=== PATIENT | female | born 1985 | race African-American/Black ===

== ENCOUNTER 2017-01-19 13:22 | Emergency (ER) | payer MEDICAID, OTHER ==
[2017-01-19] MEDS ORDERED: IBUPROFEN 800 MG TABLET PO STA (14:57)
[2017-01-19] MEDS ORDERED: SULFAMETH/TRIMETH DS 800/160 MG TABLET PO STA (14:57)
[2017-01-19] MEDS ORDERED: SULFAMETH/TRIMETH DS 800/160 MG TABLET PO ONE (15:03)
[2017-01-19] MEDS ORDERED: IBUPROFEN 800 MG TABLET PO ONE (15:03)
== END 2017-01-19 15:11 | disposition home or self-care (01) ==
DX: L02.31 Cutaneous abscess of buttock (principal)
CPT/HCPCS: 99283; A9270

== ENCOUNTER 2017-07-13 10:31 | Emergency (ER) | payer OTHER ==
[2017-07-13 10:59] LABS: BILIRUBIN,URINE NEGATIVE (NEGATIVE)
[2017-07-13 11:03] LABS: HCG UR QUAL NEGATIVE; UA CHARGE (STRIP ONLY) YES; UR CULTURE IF IND NOT INDICATED
--- NOTE | 2017-07-13 11:54 | ED Physician Documentation ---
PD HPI FEMALE - Stated complaint Stated Complaint: BACK PX/FEMALE - Chief complaint Chief Complaint: UTI - History obtained from History obtained from: Patient - History of Present Illness Timing - duration: Days Timing - details: Gradual onset Associated symptoms: Pelvic pain (crampy), Dysuria, Urinary frequency. No: Vaginal discharge, Genital sore/lesion Contributing factors: No: Exposed to STD Similar symptoms before: Diagnosis (UTIs) Recently seen: Not recently seen Review of Systems Constitutional: denies: Fever, Chills : reports: Dysuria, Frequency. 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 : None - Past Surgical History Past Surgical History: No - Present Medications Home Medications: Ambulatory Orders Medication Instructions Recorded Confirmed Fluconazole [Diflucan] 150 mg PO ONCE #2 tablet 07/13/17 Metronidazole [Flagyl] 500 mg PO BID #14 tablet 07/13/17 - Allergies Allergies/Adverse Reactions: Allergies Allergy/AdvReac Type Severity Reaction Status Date / Time No Known Drug Allergies Allergy Verified 07/13/17 11:15 - Social History Does the pt smoke?: No Smoking Status: Never smoker Does the pt drink ETOH?: Yes Does the pt have substance abuse?: No - Immunizations Immunizations are current?: Yes PD ED PE NORMAL - Vitals Vital signs reviewed: Yes - General General: Alert and oriented X 3, No acute distress, Well developed/nourished - Cardiac Cardiac: RRR, No murmur - Respiratory Respiratory: Clear bilaterally - Abdomen Abdomen: Normal bowel sounds, Soft, Non distended, No organomegaly, Other (mild tenderness lower abd left more than right, without peritoneal signs. 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 Intravaginal discharge with some thicker white component, but also some clear to milky white thinner. ) Results - Vitals Vitals: Vital Signs - 24 hr 07/13/17 07/13/17 07/13/17 10:45 12:54 12:56 Temperature 36.2 C L Heart Rate 74 81 Respiratory 14 17 Rate Blood Pressure 142/74 H 121/81 H O2 Saturation 100 100 Oxygen O2 Source Room air - Labs Labs: Microbiology 07/13/17 12:44 Wet Prep - Final Vaginal Laboratory Tests 07/13/17 10:53 Urine Color YELLOW Urine Clarity CLEAR Urine pH 7.0 Ur Specific [place] 1.020 Urine Protein NEGATIVE Urine Glucose (UA) NEGATIVE Urine Ketones NEGATIVE Urine Occult Blood TRACE-INTA Urine Nitrite NEGATIVE Urine Bilirubin NEGATIVE Urine Urobilinogen 0.2 (NORMAL) Ur Leukocyte Esterase NEGATIVE Ur Microscopic Review NOT INDICATED Urine Culture Comments NOT INDICATED Urine HCG, Qual NEGATIVE PD MEDICAL DECISION MAKING - ED course Complexity details: reviewed results (UA appears too normal, so discussed pelvic with patient. Pelvic showing clinically likely BV. Will treat for that. ) , considered differential, d/w patient Departure - Departure Disposition: Home, Self Care Clinical Impression: Dysuria, Bacterial vaginosis Condition: Stable Record reviewed to determine appropriate education?: Yes Instructions: ED Vaginosis Bacterial Follow-Up: AD MCCANN [Primary Care Provider] - Prescriptions: Fluconazole [Diflucan] 150 mg PO ONCE #2 tablet Metronidazole [Flagyl] 500 mg PO BID #14 tablet Comments: Take a Climate tramadol antifungal tablet today and repeat in 1 week. Use the metronidazole antibiotic twice daily for a week for the bacterial vaginitis. Culture results will be available in about 3 days to see if there is other type infection. Recheck if not improving over the next several days. Your urine has looked normal without bladder infection and so we are treating as the apparent bacterial vaginitis. Discharge Date/Time: 07/13/17 13:05
[2017-07-13 12:56] VITALS: BP 121/81
[2017-07-13] MEDS ORDERED: IBUPROFEN 400 MG TABLET PO STA (12:58)
== END 2017-07-13 13:05 | disposition home or self-care (01) ==
LOC: ED 10:31
DX: N76.0 Acute vaginitis (principal)
CPT/HCPCS: 81001; 81003; 81025; 87086; 87210; 87491; 87591; 99283

== ENCOUNTER 2017-10-27 10:25 | Emergency (ER) | payer OTHER ==
[2017-10-27 11:19] LABS: BILIRUBIN,URINE NEGATIVE (NEGATIVE)
[2017-10-27 11:22] LABS: HCG UR QUAL NEGATIVE; UA w/ MICROSCOPIC CHARGE YES
[2017-10-27 11:29] LABS: UR CULTURE IF IND NOT INDICATED; WBC,URINE 0-3 /HPF (0-5)
--- NOTE | 2017-10-27 12:17 | ED Physician Documentation ---
PD HPI ABD PAIN - Stated complaint Stated Complaint: FEMALE /LOWER ABD PX - Chief complaint Chief Complaint: Abd Pain - History obtained from History obtained from: Patient - History of Present Illness Timing - onset: Other (She developed low back pain about 5 days ago, then removed around the abdomen, lower quadrants and suprapubic area about 3 days ago. Over the last day she has developed creamy white discharge similar to prior frequent episodes of bacterial vaginosis. She does have urinary frequency but no dysuria. No bleeding, chills, fever, or vomiting. 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 : None - Past Surgical History Past Surgical History: No - Present Medications Home Medications: Ambulatory Orders Medication Instructions Recorded Confirmed Medroxyprogesterone Acetate 150 mg IM 10/27/17 [Depo-Provera] Metronidazole [Flagyl] 500 mg PO BID #14 tablet 10/27/17 - Allergies Allergies/Adverse Reactions: Allergies Allergy/AdvReac Type Severity Reaction Status Date / Time No Known Drug Allergies Allergy Verified 10/27/17 10:36 - Social History Does the pt smoke?: No Smoking Status: Never smoker Does the pt drink ETOH?: Yes Does the pt have substance abuse?: No - Immunizations Immunizations are current?: Yes PD ED PE NORMAL - Vitals Vital signs reviewed: Yes - General General: Alert and oriented X 3, No acute distress - Abdomen Abdomen: Normal bowel sounds, Soft, Other (Mild suprapubic tenderness without surgical signs) - 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 RN), Other (Moderate creamy white vaginal discharge, no cervical motion tenderness but has mild nonspecific bimanual tenderness, if anything lateralizes to the left) - Neuro Neuro: Alert and oriented X 3, Normal speech - Psych Psych: Normal mood, Normal affect Results - Vitals Vitals: Vital Signs - 24 hr 10/27/17 10/27/17 10/27/17 10:32 11:49 12:49 Temperature 36.2 C L 36.2 C L Heart Rate 95 85 77 Respiratory 18 15 16 Rate Blood Pressure 133/85 H 134/84 H 137/90 H O2 Saturation 100 100 96 Oxygen O2 Source Room air - Labs Labs: Microbiology 10/27/17 12:40 Wet Prep - Final Genital - Vaginal 10/27/17 12:28 CHARIS Preparation - Final Fluid - Vaginal Laboratory Tests 10/27/17 10/27/17 11:15 11:15 Urine Color YELLOW Urine Clarity CLEAR Urine pH 6.0 Ur Specific [place] >=1.030 H >=1.030 H Urine Protein NEGATIVE Urine Glucose (UA) NEGATIVE Urine Ketones NEGATIVE Urine Occult Blood SMALL H Urine Nitrite NEGATIVE Urine Bilirubin NEGATIVE Urine Urobilinogen 0.2 (NORMAL) Ur Leukocyte Esterase NEGATIVE Urine RBC 0-5 Urine WBC 0-3 Ur Squamous Epith Cells MOD Squamous H Urine Bacteria Moderate H Urine Mucus Marked Strands Ur Microscopic Review INDICATED Urine Culture Comments NOT INDICATED Urine HCG, Qual NEGATIVE PD MEDICAL DECISION MAKING - ED course ED course: 32-year-old woman with pelvic and back pain associated with vaginal discharge found to have bacterial vaginosis, exam is inconsistent with PID or other intra- abdominal process. The patient and family were counseled as to the diagnosis and need for follow- up. I counseled the patient with regard to signs and symptoms that would necessitate an urgent reevaluation in the emergency department. They understand they are welcome to return at any time if worse or if not improving as expected. This document was made in part using voice recognition software. While efforts are made to proofread this documents, sound alike and grammatical errors may occur. Departure - Departure Disposition: 01 Home, Self Care Clinical Impression: Bacterial vaginosis Condition: Good Record reviewed to determine appropriate education?: Yes Instructions: ED Vaginosis Bacterial Prescriptions: Metronidazole [Flagyl] 500 mg PO BID #14 tablet Comments: Call your doctor to arrange a follow-up appointment, make the next available appointment. In the interim, return anytime if worse or if new symptoms develop. Your blood pressure was elevated today on check into the emergency department. This does not mean that you have hypertension, it is a common phenomenon to come to the emergency department and have elevated blood pressure. I recommend that you see your primary care physician within the week to have it rechecked when you are feeling better.
[2017-10-27 12:50] VITALS: BP 137/90
== END 2017-10-27 13:14 | disposition home or self-care (01) ==
LOC: ED 10:25
DX: N76.0 Acute vaginitis (principal); R03.0 Elevated blood-pressure reading, without diagnosis of hypertension
CPT/HCPCS: 81001; 81003; 81025; 87086; 87210; 87220; 87491; 87591; 99283

== ENCOUNTER 2018-04-30 10:14 | Emergency (ER) | payer OTHER ==
--- NOTE | 2018-04-30 12:08 | ED Physician Documentation ---
History of Present Illness - Stated complaint Stated Complaint: COUGH/CHEST CONGESTATION - Chief complaint Chief Complaint: General - History obtained from History obtained from: Patient, Family - History of Present Illness Timing: Other (This is a 32-year-old woman on Depo-Provera with no possibility of with long-standing reflux on omeprazole although she did not take it today. 6 days ago she developed upper abdominal cramps radiating into the chest. She thought she might be constipated so the next day she took magnesium citrate and she did have a good bowel movement. A few days after that she developed diffuse erythema and welts, but it is noted that that started after getting fluoride rinse at the dentist. That has resolved but since today she now has a nonproductive cough with some shortness of breath after exerting herself. There is no fever.) Review of Systems Constitutional: denies: Fever, Chills Cardiac: reports: Chest pain / pressure. denies: Palpitations, Pedal edema, Calf pain Respiratory: reports: Dyspnea, Cough. 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 - Past Surgical History Past Surgical History: No - Present Medications Home Medications: Ambulatory Orders Medication Instructions Recorded Confirmed Azithromycin [Zithromax] 250 mg PO DAILY #6 tablet 04/30/18 Esomeprazole Magnesium [Nexium] mg PO 04/30/18 Multivitamin [Multiple Vitamins] 1 each PO 04/30/18 - Allergies Allergies/Adverse Reactions: Allergies Allergy/AdvReac Type Severity Reaction Status Date / Time No Known Drug Allergies Allergy Verified 04/30/18 10:22 - Social History Does the pt smoke?: No Smoking Status: Never smoker Does the pt drink ETOH?: Yes Does the pt have substance abuse?: No - Immunizations Immunizations are current?: Yes - POLST Patient has POLST: No PD ED PE NORMAL - Vitals Vital signs reviewed: Yes - General General: Alert and oriented X 3, No acute distress - HEENT HEENT: PERRL, EOMI, Ears normal - Neck Neck: Supple, no meningeal sign, No bony TTP - Cardiac Cardiac: RRR, No murmur - Respiratory Respiratory: No respiratory distress, Clear bilaterally - Abdomen Abdomen: Normal bowel sounds, Soft, Non tender - Extremities Extremities: No edema, No calf tenderness / cord - Neuro Neuro: Alert and oriented X 3, Normal speech - Psych Psych: Normal mood, Normal affect Results - Vitals Vitals: Vital Signs - 24 hr 04/30/18 10:18 Temperature 36.5 C Heart Rate 101 H Respiratory 16 Rate Blood Pressure 131/94 H O2 Saturation 99 Oxygen O2 Source Room air - Labs Labs: Laboratory Tests 04/30/18 04/30/18 04/30/18 12:15 12:15 12:15 WBC 8.5 RBC 4.62 Hgb 13.4 Hct 39.6 MCV 85.8 MCH 28.9 MCHC 33.7 RDW 14.1 Plt Count 349 MPV 6.5 L Neut # 5.4 Lymph # 2.2 [place] # 0.7 Eos # 0.1 Baso # 0.1 Absolute Nucleated RBC 0.00 Nucleated RBC % 0.0 D-Dimer 807.2 H Sodium 135 Potassium 3.6 Chloride 104 Carbon Dioxide 24 Anion Gap 7.0 BUN 14 Creatinine 0.9 Estimated GFR (MDRD) 87 L Glucose 87 Calcium 9.5 Total Bilirubin 0.7 AST 21 ALT 21 Alkaline Phosphatase 79 Total Protein 8.6 H Albumin 4.3 Globulin 4.3 H Albumin/Globulin Ratio 1.0 Lipase 38 Urine Color Urine Clarity Urine pH Ur Specific [place] Urine Protein Urine Glucose (UA) Urine Ketones Urine Occult Blood Urine Nitrite Urine Bilirubin Urine Urobilinogen Ur Leukocyte Esterase Ur Microscopic Review Urine Culture Comments Urine HCG, Qual 04/30/18 12:15 WBC RBC Hgb Hct MCV MCH MCHC RDW Plt Count MPV Neut # Lymph # [place] # Eos # Baso # Absolute Nucleated RBC Nucleated RBC % D-Dimer Sodium Potassium Chloride Carbon Dioxide Anion Gap BUN Creatinine Estimated GFR (MDRD) Glucose Calcium Total Bilirubin AST ALT Alkaline Phosphatase Total Protein Albumin Globulin Albumin/Globulin Ratio Lipase Urine Color YELLOW Urine Clarity CLEAR Urine pH 5.5 Ur Specific [place] 1.010 Urine Protein NEGATIVE Urine Glucose (UA) NEGATIVE Urine Ketones NEGATIVE Urine Occult Blood TRACE-INTA Urine Nitrite NEGATIVE Urine Bilirubin NEGATIVE Urine Urobilinogen 0.2 (NORMAL) Ur Leukocyte Esterase NEGATIVE Ur Microscopic Review NOT INDICATED Urine Culture Comments NOT INDICATED Urine HCG, Qual NEGATIVE PD MEDICAL DECISION MAKING - ED course ED course: 32-year-old woman presents with a constellation of symptoms that cannot easily be explained, nausea, vomiting, followed by welts, followed by cough and shortness of breath. The closest I can come up with his mycoplasmal infection which I will treat her for. She was also screened for other etiologies including PE given her tachycardia and her d-dimer was positive followed by CT that was negative except for pulmonary nodule and a repeat low-dose CT was recommended. Departure - Departure Disposition: Home, Self Care Clinical Impression: Pulmonary nodule, Mycoplasma infection, unspecified site Dyspnea Qualifiers: Dyspnea type: dyspnea on exertion Qualified Code(s): R06.09 - Other forms of dyspnea Dysphagia Qualifiers: Dysphagia type: esophageal phase Qualified Code(s): R13.10 - Dysphagia, unspecified Condition: Good Record reviewed to determine appropriate education?: Yes Prescriptions: Azithromycin [Zithromax] 250 mg PO DAILY #6 tablet Comments: As discussed, your symptoms do not lead to a clear etiology, the closest I can come up with is a mycoplasmal infection which we are treating you for with antibiotics. She continued to have issues with swallowing, talk with your doctor about an upper endoscopy. Your CAT scan was negative for blood clots, but did show a small nodule, discussed this with your physician, he or she may want to repeat a low-dose CAT scan in 3-6 months. Return if worsening.
[2018-04-30 12:22] LABS: BASOPHILS # (AUTO) 0.1 10^3/uL (0.0-0.1); BASOPHILS % (AUTO) 0.6 %; EOSINOPHILS # (AUTO) 0.1 10^3/uL (0.0-0.7); EOSINOPHILS % (AUTO) 1.6 %; HGB - HEMOGLOBIN 13.4 g/dL (12.0-16.0); LYMPHOCYTES # (AUTO) 2.2 10^3/uL (1.5-3.5); LYMPHOCYTES % (AUTO) 26.1 %; MEAN CORPUSCULAR HEMOGLOBIN 28.9 pg (27.0-31.0); MEAN CORPUSCULAR HGB CONC 33.7 g/dL (32.0-36.0); MEAN CORPUSCULAR VOLUME 85.8 fL (81.0-99.0); MEAN PLATELET VOLUME 6.5 fL (7.9-10.8); MONOCYTES # (AUTO) 0.7 10^3/uL (0.0-1.0); MONOCYTES % (AUTO) 8.2 %; NEUTROPHILS # (AUTO) 5.4 10^3/uL (1.5-6.6); NEUTROPHILS % (AUTO) 63.5 %; PLT - PLATELET COUNT 349 10^3/uL (130-450); RED BLOOD COUNT 4.62 10^6/uL (4.20-5.40); RED CELL DISTRIBUTION WIDTH 14.1 % (12.0-15.0); WHITE BLOOD COUNT 8.5 x10^3/uL (4.8-10.8)
--- NOTE | 2018-04-30 12:22 | XRAY Report ---
EXAM: CHEST RADIOGRAPHY EXAM DATE: 04/30/2018 11:39 AM. CLINICAL HISTORY: Cough and congestion. COMPARISON: None. TECHNIQUE: 2 views. FINDINGS: Lungs/Pleura: No focal opacities evident. No pleural effusion. No pneumothorax. Normal volumes. Mediastinum: Heart and mediastinal contours are unremarkable. Other: None. IMPRESSION: 1. No acute disease in the chest. [facility] Referring Provider Line: [phone] SITE ID: [id number]
[2018-04-30 12:29] LABS: BILIRUBIN,URINE NEGATIVE (NEGATIVE); GLUCOSE, URINE (UA) NEGATIVE (NEGATIVE); KETONES,URINE (UA) NEGATIVE (NEGATIVE); LEUKOCYTE ESTERASE, URINE NEGATIVE (NEGATIVE); NITRITE,URINE NEGATIVE (NEGATIVE); OCCULT BLOOD,URINE TRACE-INTA (NEGATIVE); PH,URINE 5.5 PH (5.0-7.5); PROTEIN,URINE NEGATIVE (NEGATIVE); UROBILINOGEN,URINE 0.2 (NORMAL) E.U./dL (NORMAL)
[2018-04-30 12:32] LABS: CLARITY,URINE CLEAR (CLEAR); HCG UR QUAL NEGATIVE
[2018-04-30 12:35] LABS: ALBUMIN 4.3 g/dL (3.2-5.5); BILIRUBIN,TOTAL 0.7 mg/dL (0.2-1.0); CALCIUM 9.5 mg/dL (8.5-10.3); CREATININE 0.9 mg/dL (0.4-1.0); TOTAL PROTEIN 8.6 g/dL (6.7-8.2)
[2018-04-30] MEDS ORDERED: IOPAMIDOL-300 100 ML VIAL ONE (13:34)
--- NOTE | 2018-04-30 14:28 | CT Report ---
EXAM: CT ANGIOGRAM CHEST EXAM DATE: 04/30/2018 01:56 PM. CLINICAL HISTORY: Chest pain/dyspnea, high dimer. COMPARISON: None. TECHNIQUE: Routine helical imaging was performed through the chest in the pulmonary arterial phase. I V Contrast: 80 cc Isovue-[id number]. Reconstructions: Coronal 3-D MIP reconstructions.Sagittal and coronal. In accordance with CT protocol optimization, one or more of the following dose reduction techniques w ere utilized for this exam: automated exposure control, adjustment of mA and/or KV based on patient s ize, or use of iterative reconstructive technique. FINDINGS: Pulmonary Arteries: Diagnostic quality: Adequate through the segmental arteries. No evidence for acute or chronic pulmona ry emboli. Lungs/Pleura: 1.1 cm nodule with solid and sub-solid component (5/105) in the right lower lobe posteriorly. No pleural effusions. No endobronchial or endotracheal lesion. Mediastinum: Imaged portions of the thyroid are grossly unremarkable. Residual thymus is present. Thoracic aorta and main pulmonary artery are normal caliber. Heart size is within normal limits. No pericardial effusion. Lymph Nodes: No mediastinal, hilar, or axillary adenopathy. Bones: No suspicious osseous lesions. Visualized chest wall is grossly unremarkable. Partially Imaged Upper Abdomen: No acute abnormalities. IMPRESSION: No acute or chronic pulmonary embolus. 1.1 cm mixed solid and sub-solid nodule in the right lower lobe posteriorly. Given this is incidental and the age, suspect postinflammatory etiology. However, recommend follow-up low-dose CT chest in 3- 6 months. [facility] Referring Provider Line: [phone] SITE ID: [id number]
--- NOTE | 2018-04-30 14:28 | CT Preliminary Report ---
Exam: CT CHEST ANGIO (PE) IMPRESSION: No acute or chronic pulmonary embolus. 1.1 cm mixed solid and sub-solid nodule in the right lower lobe posteriorly. Given this is incidental and the age, suspect postinflammatory etiology. However, recommend follow-up low-dose CT chest in 3- 6 months. [facility] SITE ID: [id number]
[2018-04-30] MEDS ORDERED: IOPAMIDOL-300 100 ML VIAL IVP ONE (14:31)
[2018-04-30 14:44] VITALS: BP 139/96
== END 2018-04-30 14:44 | disposition home or self-care (01) ==
LOC: ED 10:14
DX: R91.1 Solitary pulmonary nodule (principal); A49.3 Mycoplasma infection, unspecified site; R06.09 Other forms of dyspnea; R13.10 Dysphagia, unspecified
CPT/HCPCS: 36415; 71046; 71275; 80053; 81003; 81025; 83690; 85025; 85379; 99283; 99284; Q9967; 81001; 87086

== ENCOUNTER 2019-02-06 19:52 | Outpatient (CLI) | payer SELFPAY | END 2019-02-06 19:53 | disposition EMS.NT | LOC: EMS 19:52 | PROVIDERS: ATTEND Surgery | DX: R51 Headache (principal) ==

== ENCOUNTER 2019-02-06 20:34 | Emergency (ER) | payer OTHER ==
[2019-02-06] MEDS ORDERED: SODIUM CHLORIDE 0.9% 1,000 ML IV ONE (21:28)
[2019-02-06] MEDS ORDERED: diphenhydrAMINE INJ 50 MG/ML VIAL IVP STA (21:28)
[2019-02-06] MEDS ORDERED: METOCLOPRAMIDE 10 MG/2 ML VIAL IVP STA (21:28)
[2019-02-06] MEDS ORDERED: KETOROLAC 30 MG/ML VIAL IVP STA (21:28)
--- NOTE | 2019-02-06 21:36 | ED Physician Documentation ---
PD HPI HEADACHE - Stated complaint Stated Complaint: HEADACHES - Chief complaint Chief Complaint: Neuro - Additional information Additional information: 33-year-old female presents the emergency department with intermittent episodes of headaches for the past week. The patient reports pain in the right side of her head which she describes as a sharp throbbing pain. The patient denies any vision changes, speech changes, motor weakness or sensory changes. The headaches are gradual onset. The patient denies any radiation into her neck. The patient denies neck stiffness. Tonight the patient had another episode of headache and it was associated with an episode of feeling short of breath. The patient reports that she felt like she was having a panic attack secondary to the headache. The patient reports feeling lightheaded at times. No other associated symptoms. No triggering factors. Review of Systems Constitutional: denies: Fever, Chills Eyes: denies: Decreased vision, Discharge Ears: denies: Ear pain Nose: denies: Congestion Throat: denies: Sore throat Cardiac: denies: Chest pain / pressure Respiratory: denies: Cough GI: denies: Abdominal Pain Skin: denies: Rash Musculoskeletal: denies: Neck pain Neurologic: reports: Headache. 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 - Past Surgical History Past Surgical History: No - Present Medications Home Medications: Ambulatory Orders Medication Instructions Recorded Confirmed Esomeprazole Magnesium [Nexium] 20 mg PO DAILY 04/30/18 02/06/19 Multivitamin [Multiple Vitamins] 1 each PO DAILY 04/30/18 02/06/19 - Allergies Allergies/Adverse Reactions: Allergies Allergy/AdvReac Type Severity Reaction Status Date / Time No Known Drug Allergies Allergy Verified 02/06/19 20:52 - Social History Does the pt smoke?: No Smoking Status: Never smoker Does the pt drink ETOH?: Yes Does the pt have substance abuse?: No - Immunizations Immunizations are current?: Yes - POLST Patient has POLST: No PD ED PE NORMAL - General General: Alert and oriented X 3, No acute distress - HEENT HEENT: Atraumatic, PERRL, EOMI, Ears normal - Neck Neck: Supple, no meningeal sign - Cardiac Cardiac: RRR, Strong equal pulses - Respiratory Respiratory: No respiratory distress, Clear bilaterally - Derm Derm: Normal color - Extremities Extremities: No deformity, Normal ROM s pain - Neuro Neuro: Alert and oriented X 3, sub prior 2-12 intact, No motor deficit, No sensory deficit, Normal speech - Psych Psych: Normal affect Results - Vitals Vitals: Vital Signs - 24 hr 02/06/19 02/06/19 02/06/19 20:48 22:30 22:52 Temperature 36.3 C L Heart Rate 80 76 70 Respiratory 16 16 16 Rate Blood Pressure 129/81 H 128/87 H 130/84 H O2 Saturation 100 100 100 02/06/19 23:17 Temperature Heart Rate 69 Respiratory 18 Rate Blood Pressure 126/68 O2 Saturation 100 Oxygen O2 Source Room air - EKG (time done) No standard instances Rhythm: NSR Intervals: Normal [place], QRS normal Ischemia: Normal ST segments - Labs Labs: Laboratory Tests 02/06/19 02/06/19 02/06/19 22:20 22:20 22:20 VBG Total Hgb VBG Oxyhemoglobin VBG Carboxyhemoglobin VBG Methemoglobin Sodium 135 Potassium 3.5 Chloride 101 Carbon Dioxide 23 Anion Gap 11.0 BUN 12 Creatinine 0.7 Estimated GFR (MDRD) 116 Glucose 90 Calcium 9.5 Total Bilirubin 0.4 AST 23 ALT 20 Alkaline Phosphatase 82 Troponin I < 0.04 Total Protein 8.1 Albumin 4.1 Globulin 4.0 Albumin/Globulin Ratio 1.0 Lipase 31 TSH 1.78 HCG, Quant 02/06/19 02/06/19 22:20 22:20 VBG Total Hgb 14.8 VBG Oxyhemoglobin 71 L VBG Carboxyhemoglobin 1.6 H VBG Methemoglobin 0.2 Sodium Potassium Chloride Carbon Dioxide Anion Gap BUN Creatinine Estimated GFR (MDRD) Glucose Calcium Total Bilirubin AST ALT Alkaline Phosphatase Troponin I Total Protein Albumin Globulin Albumin/Globulin Ratio Lipase TSH HCG, Quant < 0.60 - Rads (name of study) CT head Radiology: Final report received, See rad report CXR Radiology: Final report received, See rad report (No acute radiographic pulmonary abnormalities. ) PD MEDICAL DECISION MAKING - ED course ED course: On reevaluation the patient is resting comfortably and her symptoms appear to be under control. The patient's workup does not reveal any significant ambulating in the emergency department. The patient's history is not suggestive of subarachnoid hemorrhage or meningitis and currently I do not think a lumbar puncture be of much utility. Presently, the patient appears appropriate for discharge and ongoing outpatient management. I discussed warning signs and recommended returning to the emergency department immediately for any worsening or any concerns Departure - Departure Disposition: 01 Home, Self Care Clinical Impression: Shortness of breath Headache Qualifiers: Headache type: unspecified Headache chronicity pattern: unspecified pattern Intractability: not intractable Qualified Code(s): R51 - Headache Condition: Good Instructions: ED Cephalgia Unspecified Follow-Up: AD MCCANN [Primary Care Provider] - Within 1 week () Comments: Please return to the emergency department for worsening symptoms or any concerns
[2019-02-06] MEDS ORDERED: PROMETHAZINE 25 MG/1 ML VIAL IM STA (22:07)
[2019-02-06] MEDS ORDERED: KETOROLAC 60 MG/2 ML VIAL IM STA (22:07)
[2019-02-06] MEDS ORDERED: diphenhydrAMINE 25 MG CAPSULE PO STA (22:07)
[2019-02-06 22:47] LABS: ALBUMIN 4.1 g/dL (3.2-5.5); BILIRUBIN,TOTAL 0.4 mg/dL (0.2-1.0); CALCIUM 9.5 mg/dL (8.5-10.3); CREATININE 0.7 mg/dL (0.4-1.0); TOTAL PROTEIN 8.1 g/dL (6.7-8.2)
--- NOTE | 2019-02-06 22:54 | CT Report ---
Reason: DIXON Procedure Date: 02/06/2019 Accession Number: [id number] / [id number] Procedure: CT - HEAD WO CPT Code: FULL RESULT: EXAM: CT HEAD EXAM DATE: 02/06/2019 10:45 PM. CLINICAL HISTORY: DIXON. COMPARISON: None. TECHNIQUE: Multiaxial CT images were obtained from the foramen magnum to the vertex. Reformats: Sagittal and coronal. IV contrast: None. In accordance with CT protocol optimization, one or more of the following dose reduction techniques were utilized for this exam: automated exposure control, adjustment of mA and/or KV based on patient size, or use of iterative reconstructive technique. FINDINGS: Parenchyma: No intraparenchymal hemorrhage. No evidence of mass, midline shift or CT findings of acute territorial infarction. Guevara-white differentiation is distinct. Extraaxial Spaces: No subdural or epidural collections identified. Ventricles: No hydrocephalus Sinuses: Imaged paranasal sinuses, orbits, and mastoids show no significant abnormality. Bones: No evidence of acute fracture or calvarial defect. Other: None. IMPRESSION: No acute intracranial abnormalities. [facility]
--- NOTE | 2019-02-06 22:57 | XRAY Report ---
Reason: soa episode Procedure Date: 02/06/2019 Accession Number: [id number] / [id number] Procedure: XR - Chest 2 View X-Ray CPT Code: 04169 FULL RESULT: EXAM: CHEST RADIOGRAPHY EXAM DATE: 02/06/2019 10:49 PM. CLINICAL HISTORY: Soa episode. COMPARISON: CHEST 2 VIEW 04/30/2018 11:23 AM. TECHNIQUE: 2 views. FINDINGS: Lungs/Pleura: No dense consolidation. No large effusion or pneumothorax. No pulmonary edema. Mediastinum: Heart and mediastinal contours are unremarkable. Other: None. IMPRESSION: No acute radiographic pulmonary abnormalities. [facility]
[2019-02-06 23:49] VITALS: BP 124/79
== END 2019-02-06 23:40 | disposition home or self-care (01) ==
LOC: ED 20:34
DX: R51 Headache (principal); R06.02 Shortness of breath; R94.31 Abnormal electrocardiogram [ECG] [EKG]
CPT/HCPCS: 36415; 70450; 71046; 80053; 82375; 83690; 84443; 84484; 84702; 93005; 96372; 99283; 99284; A9270

== ENCOUNTER 2019-08-09 06:53 | Outpatient (CLI) | payer OTHER | END 2019-08-09 06:54 | disposition critical access hospital (66) | LOC: EMS 06:53 | PROVIDERS: ATTEND Surgery | DX: R41.82 Altered mental status, unspecified (principal) | CPT/HCPCS: A0425; A0427 ==

== ENCOUNTER 2019-08-09 07:11 | Emergency (ER) | payer OTHER ==
[2019-08-09 07:55] LABS: BASOPHILS # (AUTO) 0.1 10^3/uL (0.0-0.1); BASOPHILS % (AUTO) 0.7 %; EOSINOPHILS % (AUTO) 0.5 %; HGB - HEMOGLOBIN 12.8 g/dL (12.0-16.0); LYMPHOCYTES # (AUTO) 1.1 10^3/uL (1.5-3.5); LYMPHOCYTES % (AUTO) 14.9 %; MEAN CORPUSCULAR HEMOGLOBIN 29.2 pg (27.0-31.0); MEAN CORPUSCULAR HGB CONC 33.2 g/dL (32.0-36.0); MEAN CORPUSCULAR VOLUME 88.1 fL (81.0-99.0); MEAN PLATELET VOLUME 8.5 fL (7.9-10.8); MONOCYTES # (AUTO) 0.4 10^3/uL (0.0-1.0); NEUTROPHILS % (AUTO) 78.5 %; PLT - PLATELET COUNT 293 10^3/uL (130-450); RED BLOOD COUNT 4.38 10^6/uL (4.20-5.40); RED CELL DISTRIBUTION WIDTH 13.8 % (12.0-15.0); WHITE BLOOD COUNT 7.6 x10^3/uL (4.8-10.8)
[2019-08-09 08:09] LABS: ALBUMIN 3.8 g/dL (3.2-5.5); ALBUMIN/GLOBULIN RATIO 0.9 (1.0-2.2); ALKALINE PHOSPHATASE 55 IU/L (42-121); ALT ALANINE AMINOTRANSFERASE 15 IU/L (10-60); AST ASPARTATE AMINOTRANSFERASE 16 IU/L (10-42); BILIRUBIN,TOTAL 0.6 mg/dL (0.2-1.0); BUN - BLOOD UREA NITROGEN 12 mg/dL (6-20); CALCIUM 9.2 mg/dL (8.5-10.3); CARBON DIOXIDE - CO2 23 mmol/L (21-32); CHLORIDE 106 mmol/L (101-111); CREATININE 0.9 mg/dL (0.4-1.0); GFR - MDRD 87 (>89); GLUCOSE 128 mg/dL (70-100); LIPASE 26 U/L (22-51); SODIUM 137 mmol/L (135-145); TOTAL PROTEIN 8.1 g/dL (6.7-8.2)
--- NOTE | 2019-08-09 08:15 | ED Physician Documentation ---
PD HPI ALTERED MENTAL STATUS - Stated complaint Stated Complaint: AMS - Chief complaint Chief Complaint: Neuro - History obtained from History obtained from: Family, EMS - History of Present Illness Timing - onset: Today Timing - duration: Hours Timing - details: Gradual onset, Still present Quality / character: Less responsive Associated symptoms: Headache, Other (exhaustion) Contributing factors: Other (excessive activity) Basline status: Alert and oriented X 3, Ambulatory, Independent Similar symptoms before: Diagnosis (exhaustion) Recently seen: Not recently seen - Additional information Additional information: 33-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 He states that this has happened similarly to her several months ago she was seen here in the emergency department with a headache and she resolved. The patient is not currently giving history the indicates that they are in the process of moving and they went camping this weekend with a 4 children and she is come home from the camping trip unpacked cleaned up the house was very busy all weekend and this morning is barely able to get out of bed. Review of Systems Constitutional: reports: Fatigue. denies: Fever Eyes: denies: Decreased vision Ears: denies: Ear pain Nose: denies: Rhinorrhea / runny nose, Congestion Throat: denies: Sore throat Cardiac: denies: Chest pain / pressure, Palpitations Respiratory: denies: Dyspnea, Cough GI: denies: Abdominal Pain, Nausea, Vomiting, Constipation, Diarrhea : denies: Dysuria, Frequency Skin: denies: Rash Musculoskeletal: denies: Neck pain, Back pain, Extremity pain Neurologic: reports: Generalized weakness, Altered mental status. 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 : None HEENT: None Psych: None Musculoskeletal: None Derm: None - Past Surgical History Past Surgical History: No /AUTO BODY REPAIR TECHNICIAN: Tubal ligation - Present Medications Home Medications: Ambulatory Orders Medication Instructions Recorded Confirmed Esomeprazole Magnesium [Nexium] 20 mg PO DAILY 04/30/18 02/06/19 Multivitamin [Multiple Vitamins] 1 each PO DAILY 04/30/18 02/06/19 - Allergies Allergies/Adverse Reactions: Allergies Allergy/AdvReac Type Severity Reaction Status Date / Time No Known Drug Allergies Allergy Verified 08/09/19 07:17 - Social History Does the pt smoke?: No Smoking Status: Never smoker Does the pt drink ETOH?: Yes Does the pt have substance abuse?: No - Immunizations Immunizations are current?: Yes - POLST Patient has POLST: No PD ED PE NORMAL - Vitals Vital signs reviewed: Yes (tachy and hypertensive) - General General: No acute distress, Well developed/nourished, Other (tears and withdrawn ) - HEENT HEENT: Atraumatic, PERRL, EOMI - Neck Neck: Supple, no meningeal sign, No bony TTP - Cardiac Cardiac: No murmur, Other (tachy to 110) - Respiratory Respiratory: No respiratory distress, Clear bilaterally, Other (diminished breath sounds) - Abdomen Abdomen: Soft, Non tender - Back Back: No CVA TTP, No spinal TTP - Derm Derm: Normal color, Warm and dry, No rash - Extremities Extremities: No deformity, No edema - 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 ) Results - Vitals Vitals: Vital Signs - 24 hr 08/09/19 08/09/19 08/09/19 07:13 09:29 09:36 Temperature 36.6 C Heart Rate 109 H 87 88 Respiratory 20 13 16 Rate Blood Pressure 145/86 H 133/88 H 124/91 H O2 Saturation 100 100 100 08/09/19 08/09/19 11:20 11:28 Temperature 36.9 C Heart Rate 77 77 Respiratory 17 20 Rate Blood Pressure 122/80 122/80 O2 Saturation 99 100 Oxygen O2 Source Room air - Labs Labs: Laboratory Tests 08/09/19 08/09/19 08/09/19 07:50 07:50 09:02 WBC 7.6 RBC 4.38 Hgb 12.8 Hct 38.6 MCV 88.1 MCH 29.2 MCHC 33.2 RDW 13.8 Plt Count 293 MPV 8.5 Neut # (Auto) 6.0 Lymph # (Auto) 1.1 L [place] # (Auto) 0.4 Eos # (Auto) 0.0 Baso # (Auto) 0.1 Absolute Nucleated RBC 0.00 Nucleated RBC % 0.0 Sodium 137 Potassium 3.9 Chloride 106 Carbon Dioxide 23 Anion Gap 8.0 BUN 12 Creatinine 0.9 Estimated GFR (MDRD) 87 L Glucose 128 H Calcium 9.2 Total Bilirubin 0.6 AST 16 ALT 15 Alkaline Phosphatase 55 Total Protein 8.1 Albumin 3.8 Globulin 4.3 H Albumin/Globulin Ratio 0.9 L Lipase 26 Urine Color Urine Clarity Urine pH Ur Specific [place] Urine Protein Urine Glucose (UA) Urine Ketones Urine Occult Blood Urine Nitrite Urine Bilirubin Urine Urobilinogen Ur Leukocyte Esterase Ur Microscopic Review Urine Culture Comments Urine HCG, Qual Urine Opiates Screen NEGATIVE Ur Oxycodone Screen NEGATIVE Urine Methadone Screen NEGATIVE Ur Propoxyphene Screen NEGATIVE Ur Barbiturates Screen NEGATIVE Ur Tricyclics Screen NEGATIVE Ur Phencyclidine Scrn NEGATIVE Ur Amphetamine Screen NEGATIVE U Methamphetamines Scrn NEGATIVE U Benzodiazepines Scrn NEGATIVE Urine Cocaine Screen NEGATIVE U Cannabinoids Screen POSITIVE H Ethyl Alcohol < 5.0 08/09/19 09:02 WBC RBC Hgb Hct MCV MCH MCHC RDW Plt Count MPV Neut # (Auto) Lymph # (Auto) [place] # (Auto) Eos # (Auto) Baso # (Auto) Absolute Nucleated RBC Nucleated RBC % Sodium Potassium Chloride Carbon Dioxide Anion Gap BUN Creatinine Estimated GFR (MDRD) Glucose Calcium Total Bilirubin AST ALT Alkaline Phosphatase Total Protein Albumin Globulin Albumin/Globulin Ratio Lipase Urine Color YELLOW Urine Clarity CLEAR Urine pH 7.5 Ur Specific [place] 1.015 Urine Protein NEGATIVE Urine Glucose (UA) NEGATIVE Urine Ketones NEGATIVE Urine Occult Blood TRACE-INTA Urine Nitrite NEGATIVE Urine Bilirubin NEGATIVE Urine Urobilinogen 0.2 (NORMAL) Ur Leukocyte Esterase NEGATIVE Ur Microscopic Review NOT INDICATED Urine Culture Comments NOT INDICATED Urine HCG, Qual NEGATIVE Urine Opiates Screen Ur Oxycodone Screen Urine Methadone Screen Ur Propoxyphene Screen Ur Barbiturates Screen Ur Tricyclics Screen Ur Phencyclidine Scrn Ur Amphetamine Screen U Methamphetamines Scrn U Benzodiazepines Scrn Urine Cocaine Screen U Cannabinoids Screen Ethyl Alcohol - Rads (name of study) CT head Radiology: Prelim report reviewed (Impression: Normal head CT. No evidence for significant interval change.), EMP read indepedently, See rad report Procedures - IVC sono (time) 0805 Bedside IVC sono: IVC measures (cm) (1.02), Dehydration (est 1-2 liter deficit) PD MEDICAL DECISION MAKING - ED course Complexity details: reviewed results, re-evaluated patient, considered differential, d/w patient ED course: 33-year-old mother for has been working excessively and took some edibles last night she was unable to get up this morning and she appears exhausted. She is administered intravenous fluid she is eventually able to get up and performs well. Departure - Departure Disposition: 01 Home, Self Care Clinical Impression: Exhaustion delirium, Dehydration Condition: Stable Instructions: ED Dehydration, ED Exhaustion Heat Follow-Up: AD MCCANN [Primary Care Provider] - Forms: Activity restrictions Discharge Date/Time: 08/09/19 11:50
--- NOTE | 2019-08-09 09:06 | CT Report ---
Reason: altered LOC Procedure Date: 08/09/2019 Accession Number: [id number] / [id number] Procedure: CT - HEAD WO CPT Code: FULL RESULT: EXAM: CT HEAD EXAM DATE: 08/09/2019 08:51 AM. CLINICAL HISTORY: Altered level of consciousness. COMPARISON: HEAD W/O 02/06/2019 10:40 PM. TECHNIQUE: Multiaxial CT images were obtained from the foramen magnum to the vertex. Reformats: Sagittal and coronal. IV contrast: None. In accordance with CT protocol optimization, one or more of the following dose reduction techniques were utilized for this exam: automated exposure control, adjustment of mA and/or KV based on patient size, or use of iterative reconstructive technique. FINDINGS: Parenchyma: No intraparenchymal hemorrhage. No evidence of mass, midline shift, or CT findings of infarction. Guevara-white differentiation is distinct. Extraaxial Spaces: Normal for age. No subdural or epidural collections identified. Ventricles: Normal in size and position. Sinuses and Orbits: Imaged paranasal sinuses, orbits, and mastoids show no significant abnormality. Bones: No evidence of fracture or calvarial defect. Other: None. IMPRESSION: Normal head CT. No evidence for significant interval change. RADIA
[2019-08-09 09:07] LABS: MUDS CUTOFF CONCENTRATIONS CUTOFF CONC BELOW:
[2019-08-09 09:10] LABS: BILIRUBIN,URINE NEGATIVE (NEGATIVE); GLUCOSE, URINE (UA) NEGATIVE (NEGATIVE); KETONES,URINE (UA) NEGATIVE (NEGATIVE); LEUKOCYTE ESTERASE, URINE NEGATIVE (NEGATIVE); NITRITE,URINE NEGATIVE (NEGATIVE); OCCULT BLOOD,URINE TRACE-INTA (NEGATIVE); PH,URINE 7.5 PH (5.0-7.5); PROTEIN,URINE NEGATIVE (NEGATIVE); UROBILINOGEN,URINE 0.2 (NORMAL) E.U./dL (NORMAL)
[2019-08-09 09:12] LABS: CLARITY,URINE CLEAR (CLEAR); HCG UR QUAL NEGATIVE
[2019-08-09] MEDS ORDERED: ONDANSETRON 4 MG/2 ML VIAL IVP STA (09:20)
[2019-08-09 09:21] LABS: AMPHETAMINE SCREEN,URINE NEGATIVE (NEGATIVE); BENZODIAZEPINES SCREEN, URINE NEGATIVE (NEGATIVE); COCAINE SCREEN URINE NEGATIVE (NEGATIVE); METHADONE SCREEN, URINE NEGATIVE (NEGATIVE); METHAMPHETAMINES SCREEN, URINE NEGATIVE (NEGATIVE); OPIATE SCREEN, URINE NEGATIVE (NEGATIVE); OXYCODONE SCREEN, URINE NEGATIVE (NEGATIVE); PROPOXYPHENE SCREEN, URINE NEGATIVE (NEGATIVE); TRICYCLIC ANTIDEPRESSANT,URINE NEGATIVE (NEGATIVE)
[2019-08-09 11:21] VITALS: BP 122/80
== END 2019-08-09 11:50 | disposition home or self-care (01) ==
LOC: EDUNIT# → EDBD → ED 07:11
DX: F43.0 Acute stress reaction (principal); E86.0 Dehydration
CPT/HCPCS: 36415; 70450; 80053; 80306; 80320; 81001; 81003; 81025; 83690; 85025; 87086; 96374; 99284